=== PATIENT | female | born 1965 | race Two or more races ===

== ENCOUNTER 2019-03-23 15:22 | Emergency (ER) | payer SELFPAY ==
[~2019-03-23] VITALS: Ht 157.5 cm; Wt 77.1 kg
[2019-03-23 15:53] VITALS: BP 164/85
[2019-03-23] MEDS ORDERED: LORazepam 0.5 MG TAB PO ONE (16:30)
[2019-03-23 16:31] LABS: Urine Bacteria MANY /hpf (None Seen); Urine Blood Negative /uL (Negative); Urine Specific Gravity 1.003 (1.001-1.035); Urine WBC 1 /hpf (0 - 5)
[2019-03-23 16:33] LABS: Albumin 4.2 g/dL (3.4-5.0); Anion Gap 7 (5-15); Blood Urea Nitrogen 14 mg/dL (7-18); Calcium 9.1 mg/dL (8.5-10.1); Carbon Dioxide 24 mmol/L (21-32); Chloride 110 mmol/L (98-107); Glucose 93 mg/dL (74-106); Potassium 4.1 mmol/L (3.5-5.1); Sodium 141 mmol/L (136-145)
[2019-03-23 16:37] LABS: Basophils # (auto) 0 uL; Basophils % (auto) 0.3 % (0.0-2.0); Eosinophils # (auto) 0.1 uL; Eosinophils % (auto) 1.5 % (0.0-7.0); Hemoglobin 15.2 g/dL (12.2-16.2); Lymphocytes # (auto) 3.4 uL; Lymphocytes % (auto) 39.7 % (10.0-50.0); Mean Corpuscular Hemoglobin 28.6 pg (28.0-32.0); Mean Corpuscular Hgb Conc. 33.1 g/dL (32.0-36.0); Mean Corpuscular Volume 86.3 fL (80.0-100.0); Monocytes # (auto) 0.5 uL; Monocytes % (auto) 6.3 % (0.0-12.0); Neutrophils # (auto) 4.4 uL; Neutrophils % (auto) 52.2 % (37.0-80.0); Nucleated Red Blood Cells % 0.1 %; Platelet Count (auto) 309 10^3/uL (140-450); Red Blood Cells 5.32 10^6/uL (4.0-5.20); Red Cell Distribution Width 14.4 % (11.8-14.3); White Blood Cell 8.5 10^3/uL (4.4-10.8)
[2019-03-23 16:44] LABS: Alanine Aminotransferase 28 U/L (13-56); Alkaline Phosphatase 69 U/L (45-117); Aspartate Aminotransferase 27 U/L (15-37); BUN/Creatinine Ratio 19.4; Bilirubin, Total 0.4 mg/dL (0.2-1.0); GFR African American 110 mL/min; GFR Non-African American 91 mL/min
== END 2019-03-23 17:22 | disposition home or self-care (01) ==
LOC: ER 15:26
DX: I10 Essential (primary) hypertension (principal); F41.9 Anxiety disorder, unspecified; Z88.6 Allergy status to analgesic agent; Z88.0 Allergy status to penicillin
CPT/HCPCS: 36415; 80053; 81001; 84484; 85025; 93005

== ENCOUNTER 2021-05-01 20:16 | Emergency (ER) | payer SELFPAY ==
[~2021-05-01] VITALS: Ht 157.5 cm; Wt 83.9 kg
[2021-05-01] MEDS ORDERED: cloNIDine HCL 0.1 MG TAB PO ONE (21:00)
[2021-05-01 21:17] LABS: Basophils # (auto) 0 10 ^3/uL (0-0.2); Basophils % (auto) 0.3 % (0.0-2.0); Eosinophils # (auto) 0 10 ^3/uL (0-0.8); Eosinophils % (auto) 0.8 % (0.0-7.0); Hematocrit 45.8 % (36.0-46.0); Hemoglobin 15.4 g/dL (12.2-16.2); Lymphocytes # (auto) 2.1 10 ^3/uL (0.4-5.4); Lymphocytes % (auto) 40.5 % (10.0-50.0); Mean Corpuscular Hemoglobin 29.4 pg (28.0-32.0); Mean Corpuscular Hgb Conc. 33.6 g/dL (32.0-36.0); Mean Corpuscular Volume 87.5 fL (80.0-100.0); Monocytes # (auto) 0.3 10 ^3/uL (0-1.3); Monocytes % (auto) 5.3 % (0.0-12.0); Neutrophils # (auto) 2.7 10 ^3/uL (1.6-8.6); Neutrophils % (auto) 53.1 % (37.0-80.0); Nucleated Red Blood Cells % 0.1 %; Red Blood Cells 5.24 10^6/uL (4.0-5.20); Red Cell Distribution Width 14.1 % (11.8-14.3); White Blood Cell 5.1 10^3/uL (4.4-10.8)
[2021-05-01 21:28] LABS: Magnesium 3.2 mg/dL (1.6-2.6); Potassium 3.6 mmol/L (3.5-5.1)
[2021-05-01 21:34] LABS: BUN/Creatinine Ratio 13.2; Bilirubin, Total 0.4 mg/dL (0.2-1.0); Total Protein 7.6 g/dL (6.4-8.2)
[2021-05-01 23:25] VITALS: BP 150/84
== END 2021-05-01 23:46 | disposition home or self-care (01) ==
LOC: ER 20:16
DX: R07.89 Other chest pain (principal); I16.0 Hypertensive urgency; E78.5 Hyperlipidemia, unspecified; Z98.51 Tubal ligation status; Z88.6 Allergy status to analgesic agent; Z88.0 Allergy status to penicillin
CPT/HCPCS: 36415; 71045; 80053; 83735; 84484; 85025; 93005

== ENCOUNTER 2021-07-09 09:30 | Emergency (ER) | payer MEDICAID, OTHER ==
[~2021-07-09] VITALS: Ht 160 cm; Wt 79.4 kg
[2021-07-09 17:34] VITALS: BP 128/70
== END 2021-07-09 18:47 | disposition home or self-care (01) ==
LOC: ER 09:30
DX: M79.605 Pain in left leg (principal); M79.604 Pain in right leg; I10 Essential (primary) hypertension; E78.5 Hyperlipidemia, unspecified; Z88.0 Allergy status to penicillin; Z88.5 Allergy status to narcotic agent
CPT/HCPCS: 93970